=== PATIENT | female | born 1930 | race Caucasian/White ===

== ENCOUNTER → 2016-02-22 | Outpatient (CLI) | payer BC ==
[~2016-02-22] MED LIST: ACET-1311 PO; ASPEC81 PO; GLC500 PO; IBUP-1050 PO; MULT-506 PO; NAPR1TAB9 PO; PRESERVISION LUTEIN PO; Piperacill/Tazobac Consult; SIMV40TA2 PO; SIMVASTATIN PO; SYNUNK PO; Vancomycin Consult Active
== END | disposition home or self-care (01) ==
LOC: C.LAB 12:58
PROVIDERS: ATTEND Internal Medicine Pulmonary Disease
DX: R15.9 Full incontinence of feces (principal); Z78.0 Asymptomatic menopausal state

== ENCOUNTER 2016-02-25 17:46 | Inpatient (IN) | payer BC, OTHER ==
[~2016-02-25] VITALS: Ht 152.4 cm; Wt 90.7 kg
[~2016-02-25 17:46] MED LIST changes: -NAPR1TAB9 PO; -Piperacill/Tazobac Consult; -SIMVASTATIN PO; -Vancomycin Consult Active
[2016-02-25] MEDS ORDERED: SODIUM CHLORIDE 0.9% 1000ML 500 ML IV STA (18:10)
[2016-02-25] MEDS ORDERED: SODIUM CHLORIDE 0.9% 1000ML 1,000 ML IV STA ×2 (18:10→19:42)
[2016-02-25] MEDS ORDERED: PIPERACILLIN/TAZOBACTAM 4.5 GM/100ML D5W IV STA (18:10)
--- NOTE | 2016-02-25 18:24 | EMERGENCY ROOM VISIT NOTE ---
History Report prepared by Roxanna: Sharon Caal Under the Supervision of: Dr. Matthew Santos M.D. First contact with patient: 18:05 Stated Complaint: WEAKNESS History of Present Illness The patient is a 85 year old female who presents to the Emergency Room with complaints of worsening weakness for the past few weeks. She states that she started feeling weak before [place]. The patient was feeling very weak today and was unable to get up off of the toilet. She sat on the toilet for 20 minutes before pressing her life alert button. She states that she was incontinent of stool and urine. She denies fever, dysuria, and recent falls. The patient has a large wound on her buttocks that she did not know was present. She denies any pain from the wound. She states that she has been experiencing a cough and some shortness of breath. She has not been eating and drinking as much as usual. The patient denies any history of ulcers or wounds. She takes a daily baby aspirin. Source of History: patient, nursing staff Onset: a few weeks ago Position: other (global) Quality: other (weakness) Timing: worsening Associated Symptoms: + SOB, + cough, + urinary symptoms (incontinence), No fevers Review of Systems See HPI for pertinent positives & negatives. A total of 10 systems reviewed and were otherwise negative. Past Medical & Surgical Medical Problems: (1) Decubitus skin ulcer (2) Esophageal reflux (3) Hypothyroidism, unspecified (4) Unspecified cataract Family History Non-pertinent due to advanced age. Social History Marital Status: Housing Status: lives alone Occupation Status: unemployed Current/Historical Medications Scheduled Aspirin Enteric Coated (Ecotrin Or Generic *), 81 MG PO DAILY Levothyroxine (Synthroid Unknown Dose), PO QAM Metformin Hcl (Glucophage *), 500 MG PO QPM Multivitamin (Multivitamin), 1 TAB PO DAILY Naproxen (Aleve), 220 MG PO DIRECTED [Preservision Lutein], 2 TAB PO DAILY [Simvastatin], 1 TAB PO QPM Allergies Coded Allergies: Sulfa Drugs (Verified Allergy, Mild, RASH, 02/25/16) Physical Exam Vital Signs Date Time Temp Pulse Resp B/P Pulse Ox O2 Delivery O2 Flow Rate FiO2 02/25/16 21:52 36.7 87 18 152/91 98 Room Air 02/25/16 21:04 85 18 129/85 98 Room Air 02/25/16 19:59 86 18 143/73 96 Room Air 02/25/16 18:46 99 Room Air 02/25/16 18:29 89 02/25/16 18:25 36.6 99 18 134/88 94 Room Air Physical Exam GENERAL: Patient is in no acute distress. HEENT: No acute trauma, normocephalic atraumatic, mucous membranes dry, no nasal congestion, no scleral icterus. NECK: No stridor, no adenopathy, no meningismus, trachea is midline. LUNGS: Clear to auscultation bilaterally, no wheeze, no rhonchi, breath sounds equal. HEART: Irregular rhythm without any murmurs, regular rate. ABDOMEN: Soft, nontender, bowel sounds positive, no hernias, no peritonitis. BACK: There is a 15-20cm deep malodorous ulcer to the midsacrum, tissue present, there is some surrounding erythema. EXTREMITIES: Mild bilateral pedal edema, no cellulitis. No cyanosis, full range of motion of all the joints without pain or difficulty, no signs for acute trauma. There is a 10cm left lateral thigh hematoma without cellulitis. NEUROLOGIC: Oriented x 3, no acute motor or sensory deficits, no focal weakness. SKIN: No rash, no jaundice, no diaphoresis. Medical Decision & Procedures ER Provider Diagnostic Interpretation: Radiology results as stated below per my review and radiologist interpretation: CHEST ONE VIEW PORTABLE CLINICAL HISTORY: Altered mental status. Weakness. COMPARISON STUDY: Chest CT January 26, 2016. FINDINGS: The patient is rotated. There is no evidence of pulmonary edema. A 1.8 cm right upper lobe nodule is again noted. Allowing for patient rotation, the cardiomediastinal silhouette is stable. No lobar consolidation is present. IMPRESSION: 1. Rotated study. No acute cardiopulmonary findings identified. 2. Redemonstration of the 1.8 cm right upper lobe nodule which is better depicted on recent chest CT. Electronically signed by: Adan Garrett M.D. 02/25/2016 6:40 PM Dictated Date/Time: 02/25/2016 6:39 PM Laboratory Results 02/25/16 18:28 Red Blood Count 4.31, Mean Corpuscular Volume 79.4, Mean Corpuscular Hemoglobin 27.6, Mean Corpuscular Hemoglobin Concent 34.8, Mean Platelet Volume 9.4 02/25/16 18:28 Test 02/25/16 18:28 02/25/16 19:50 White Blood Count 25.99 K/uL (4.8-10.8) Red Blood Count 4.31 M/uL (4.2-5.4) Hemoglobin 11.9 g/dL (12.0-16.0) Hematocrit 34.2 % (37-47) Mean Corpuscular Volume 79.4 fL (80-100) Mean Corpuscular Hemoglobin 27.6 pg (25-34) Mean Corpuscular Hemoglobin Concent 34.8 g/dl (32-36) Platelet Count 387 K/uL (130-400) Mean Platelet Volume 9.4 fL (7.4-10.4) RDW Standard Deviation 42.0 fL (36.4-46.3) RDW Coefficient of Variation 14.6 % (11.5-14.5) Neutrophils % (Manual) 87.8 % Lymphocytes % (Manual) 10.4 % Monocytes % (Manual) 0.9 % Eosinophils % (Manual) 0.9 % Neutrophils # (Manual) 22.82 K/uL (1.4-6.5) Total Absolute Neutrophils 22.82 K/uL (1.4-6.5) Lymphocytes # (Manual) 2.70 K/uL (1.2-3.4) Total Absolute Lymphocytes 2.70 K/uL (1.2-3.4) Monocytes # (Manual) 0.23 K/uL (0.11-0.59) Eosinophils # (Manual) 0.23 K/uL (0-0.5) Prothrombin Time 14.7 SECONDS (9.0-12.0) Prothromb Time International Ratio 1.4 (0.9-1.1) Activated Partial Thromboplast Time 26.1 SECONDS (21.0-31.0) Partial Thromboplastin Ratio 1.0 Anion Gap 14.0 mmol/L (3-11) Est Creatinine Clear Calc Drug Dose 26.5 ml/min Estimated GFR () 33.7 Estimated GFR (Non- 29.1 BUN/Creatinine Ratio 31.3 (10-20) Lactic Acid Level 3.2 mmol/L (0.4-2.0) Calcium Level 7.9 mg/dl (8.5-10.1) Total Bilirubin 0.5 mg/dl (0.2-1) Aspartate Amino Transf (AST/SGOT) 54 U/L (15-37) Alanine Aminotransferase (ALT/SGPT) 36 U/L (12-78) Alkaline Phosphatase 143 U/L (45-117) Total Creatine Kinase 295 U/L (26-192) Troponin I < 0.015 ng/ml (0-0.045) Total Protein 6.4 gm/dl (6.4-8.2) Albumin 1.7 gm/dl (3.4-5.0) Globulin 4.7 gm/dl (2.5-4.0) Albumin/Globulin Ratio 0.4 (0.9-2) Thyroid Stimulating Hormone (TSH) 2.500 uIu/ml (0.300-4.500) Free Thyroxine 1.63 ng/dl (0.80-1.60) Urine Color DK YELLOW Urine Appearance TURBID (CLEAR) Urine pH 5.0 (4.5-7.5) Urine Specific [place] 1.016 (1.000-1.030) Urine Protein NEG (NEG) Urine Glucose (UA) NEG (NEG) Urine Ketones NEG (NEG) Urine Occult Blood 2+ (NEG) Urine Nitrite NEG (NEG) Urine Bilirubin NEG (NEG) Urine Urobilinogen NEG (NEG) Urine Leukocyte Esterase NEG (NEG) Urine WBC (Auto) 5-10 /hpf (0-5) Urine RBC (Auto) 5-10 /hpf (0-4) Urine Hyaline Casts (Auto) 1-5 /lpf (0-5) Urine Epithelial Cells (Auto) >30 /lpf (0-5) Urine Bacteria (Auto) NEG (NEG) Urine Renal Epithelial Cells 0-5 /lpf (0-5) Urine Crystals AMORPHOUS SEDIMENT (NONE Urine Pathogenic Casts /lpf (0) Urine Yeast (Auto) (NONE PRSENT) Laboratory results reviewed by me. Medications Administered Medications (Trade) Dose Ordered Sig/Erin Route Start Time Stop Time Status Last Admin Dose Admin Sodium Chloride 500 ml @ 999 mls/hr Q31M STAT IV 02/25/16 18:10 02/25/16 18:40 DC 02/25/16 18:42 999 MLS/HR Sodium Chloride (Nss 1000ml) 1,000 ml @ 200 mls/hr Q5H STAT IV 02/25/16 18:10 02/25/16 23:09 02/25/16 18:43 200 MLS/HR Piperacillin Sod/ Tazobactam Sod 4.5 gm 4.5 gm NOW STAT IV 02/25/16 18:10 02/25/16 18:14 DC 02/25/16 18:52 4.5 GM Sodium Chloride (Nss 1000ml) 1,000 ml @ 999 mls/hr Q1H1M STAT IV 02/25/16 19:42 02/25/16 20:42 DC 02/25/16 19:42 999 MLS/HR Vancomycin HCl (Vancomycin 1gm/ 270ml Nss) 1 gm NOW STAT IV 02/25/16 20:19 02/25/16 20:20 DC 02/25/16 20:58 1 GM Ondansetron HCl (Zofran Inj) 4 mg STK-MED ONCE .ROUTE 02/25/16 21:49 02/25/16 21:50 DC 02/25/16 21:52 4 MG ECG Indication: weakness Rate (beats per minute): 88 Rhythm: normal sinus Findings: no acute ischemic change, no ectopy, other (poor R-wave progression) ED Course 1804: The patient was evaluated in room C10. A complete history and physical exam was performed. 0: Zosyn 4.5 gm IV, NSS 1000 ml @ 200 mls/hr IV, NSS 500 ml @ 999 mls/hr IV 1941: NSS 1000 ml @ 999 mls/hr IV 2010: I reassessed the patient at this time. She is feeling better and resting comfortably. I discussed the results and treatment plan with the patient. I answered all pertaining questions that she had. She expressed understanding and verbalized agreement. 2017: I spoke with Dr. Jimenez. We discussed the patients results and treatment plan. The patient will be evaluated by the [facility] for further management. 2019: Vancomycin HCl 1 gm IV Medical Decision Differential diagnoses includes cellulitis, sepsis, dehydration, UTI, pneumonia , electrolyte imbalance, anemia, cardiac ischemia, thyroid disorder. There is a significant leukocytosis at 25,000, this is consistent with infection. No concerning anemia. Renal panel testing shows hyponatremia and dehydration. There was no hepatitis. Lactic acid level was elevated consistent with dehydration and/or sepsis. Blood cultures are pending. Urinalysis does not show infection. Chest x-ray shows no pneumonia or CHF. EKG shows a sinus rhythm, there is no ischemia, cardiac enzyme testing times one is not suggestive of acute cardiac injury. The patient's thyroid testing is consistent with someone who takes thyroid medication. The patient was aggressively managed. She had a very large sacral ulcer with a surrounding cellulitis, I suspect this is the source of her infection. A culture of the wound was sent and is pending. The patient received IV saline, she was given IV Zosyn and IV vancomycin. The patient is not hypotensive or tachycardic. She is not hypoxic. She does not appear toxic but her laboratory workup is concerning for infection. I do think admission/observation is warranted. I spoke to the patient and with the case assistant. The on-call hospitalist was consulted. Consults Time Called: 1929 Consulting Physician: Dr. Jimenez Returned Call: [address] Jimenez. We discussed the patients results and treatment plan. The patient will be evaluated by the [facility] for further management. Impression Primary Impression: Dehydration Additional Impressions: Weakness, Cellulitis, Sacral ulcer Scribe Attestation The scribe's documentation has been prepared under my direction and personally reviewed by me in its entirety. I confirm that the note above accurately reflects all work, treatment, procedures, and medical decision making performed by me. Departure Information Dispostion Being Evaluated By Hospitalist Referrals (PCP)
--- NOTE | 2016-02-25 18:42 | DIAGNOSTIC IMAGING REPORT ---
CHEST ONE VIEW PORTABLE CLINICAL HISTORY: Altered mental status. Weakness. COMPARISON STUDY: Chest CT January 26, 2016. FINDINGS: The patient is rotated. There is no evidence of pulmonary edema. A 1.8 cm right upper lobe nodule is again noted. Allowing for patient rotation, the cardiomediastinal silhouette is stable. No lobar consolidation is present. IMPRESSION: 1. Rotated study. No acute cardiopulmonary findings identified. 2. Redemonstration of the 1.8 cm right upper lobe nodule which is better depicted on recent chest CT. Electronically signed by: Adan Garrett M.D. 02/25/2016 6:40 PM Dictated Date/Time: 02/25/2016 6:39 PM
[2016-02-25 18:43] LABS: HEMATOCRIT 34.2 % (37-47); MEAN CELL VOLUME 79.4 fL (80-100); MEAN CORPUSCULAR HEMOGLOBIN 27.6 pg (25-34); MEAN CORPUSCULAR HGB CONC 34.8 g/dl (32-36); MEAN PLATELET VOLUME 9.4 fL (7.4-10.4); PLATELET COUNT 387 K/uL (130-400); RED BLOOD COUNT 4.31 M/uL (4.2-5.4); WHITE BLOOD COUNT 25.99 K/uL (4.8-10.8)
[2016-02-25] MEDS ORDERED: NAPR1TAB9 PO (18:49)
[2016-02-25] MEDS ORDERED: SIMVASTATIN PO (18:50)
[2016-02-25 18:51] LABS: INR 1.4 (0.9-1.1); PROTHROMBIN TIME (PATIENT) 14.7 SECONDS (9.0-12.0)
[2016-02-25 19:11] LABS: ALT/SGPT 36 U/L (12-78); AST/SGOT 54 U/L (15-37); BLOOD UREA NITROGEN 50 mg/dl (7-18); BUN/CREATININE RATIO 31.3 (10-20); CALCIUM 7.9 mg/dl (8.5-10.1); CARBON DIOXIDE 22 mmol/L (21-32); CHLORIDE 92 mmol/L (98-107); GLUCOSE 172 mg/dl (70-99); POTASSIUM 4.1 mmol/L (3.5-5.1); SODIUM 128 mmol/L (136-145)
[2016-02-25 19:13] LABS: COMPLETE YES; EOSINOPHIL % 0.9 %; LYMPHOCYTE % 10.4 %; NEUTROPHILS % 87.8 %
[2016-02-25 19:21] LABS: ALB/GLOB RATIO 0.4 (0.9-2); ALKALINE PHOSPHATASE 143 U/L (45-117)
[2016-02-25] MEDS ORDERED: VANCOMYCIN 1GM/270ML NSS IV STA (20:19)
[2016-02-25 20:34] LABS: URINE APPEARANCE TURBID (CLEAR); URINE BILIRUBIN NEG (NEG); URINE COLOR DK YELLOW; URINE EPITHELIAL CELL AUTO >30 /lpf (0-5); URINE NITRITE NEG (NEG); URINE SPECIFIC GRAVITY 1.016 (1.000-1.030); UROBILINOGEN NEG (NEG); ZZURINE CULT IF INDIC CATH YES
[2016-02-25 20:40] LABS: MANUAL MICROSCOPIC REQUIRED? NO; REVIEW REQ? YES
[2016-02-25] MEDS ORDERED: ONDANSETRON INJ 2 MG/ML 2 ML VIAL ONE (21:49)
[2016-02-25] MEDS ORDERED: TRAMADOL HCL 50 MG TAB PO PRN (22:00)
[2016-02-25] MEDS ORDERED: POLYETHYLENE (MIRALAX) 17 GM PACK PO PRN (22:00)
[2016-02-25] MEDS ORDERED: ACETAMINOPHEN 325 MG TAB PO PRN (22:00)
[2016-02-25] MEDS ORDERED: MAGNESIUM HYDROXIDE SUSP 30 ML UDC PO PRN (22:00)
[2016-02-25] MEDS ORDERED: ONDANSETRON INJ 2 MG/ML 2 ML VIAL IV PRN (22:00)
[2016-02-25] MEDS ORDERED: ALUMINUM/MAGNESIUM/SIMETH (MAALOX MAX) 30 ML UDC PO PRN (22:00)
[2016-02-25] MEDS ORDERED: ZOLPIDEM TARTRATE 5 MG TAB PO PRN (22:00)
--- NOTE | 2016-02-25 22:26 | History and Physical ---
History & Physical Date & Time of Service: Feb 25, 2016 at 22:09 Chief Complaint: Weakness Primary Care Physician: Samuel Goins M.D. History of Present Illness Source: patient 85 y/o F w/Hx morbid obesity, DM 2, HPL, hypothyroid - presented to the hospital for complaints of N/V/D and weakness - was having difficulty ambulating independently. On evaluation in the ER it was noted that she had a large partially necrotic stage 4 decubitus ulcer. She also has 2 additonal blister-like lesions on her lower back and L thigh. She denied any related pain and did not know that the ulcer was present. She denies fevers or rigors, denies CP, SOB or dysuria. Past Medical/Surgical History Medical Problems: (1) Esophageal reflux Status: Chronic (2) Hypothyroidism, unspecified Status: Chronic (3) Unspecified cataract Status: Chronic 4) Morbid obesity 5) Type 2 diabetes 6) HPL Family History Noncontributoey Social History She does not drink or smoke - she maintains a good degree of independence Smoking Status: Never Smoker Marital Status: Occupational Status: unemployed Immunizations History of Influenza Vaccine: No History of Tetanus Vaccine?: No History of Pneumococcal: Yes Pneumococcal Date: Oct 30, 2007 History of Hepatitis B Vaccine: No Multi-Drug Resistant Organisms History of MDRO: No Allergies Coded Allergies: Sulfa Drugs (Verified Allergy, Mild, RASH, 02/25/16) Home Medications Scheduled Aspirin Enteric Coated (Ecotrin Or Generic *), 81 MG PO DAILY Levothyroxine (Synthroid Unknown Dose), PO QAM Metformin Hcl (Glucophage *), 500 MG PO QPM Multivitamin (Multivitamin), 1 TAB PO DAILY Naproxen (Aleve), 220 MG PO DIRECTED [Preservision Lutein], 2 TAB PO DAILY [Simvastatin], 1 TAB PO QPM Review of Systems Constitutional: + fatigue, + weakness, No chills, No fever, No sweats Eyes: No worsening of vision ENT: No hearing loss, No nasal symptoms, No unusual epistaxis Respiratory: No cough, No sputum, No wheezing Cardiovascular: No chest pain Abdomen: + diarrhea, + nausea, + vomiting, No pain Musculoskeletal: No joint pain, No muscle pain Genitourinary - Female: No dysuria, No urinary frequency, No urinary urgency Psychiatric: No depression symptoms Endocrine: + fatigue Hematologic / Lymphatic: No abnormal bleeding/bruising Integumentary: + problem reported (denied any skin compliants despite large ulcer) Allergic / Immunologic: No environmental allergies Physical Exam Vital Signs Date Time Temp Pulse Resp B/P Pulse Ox O2 Delivery O2 Flow Rate FiO2 02/25/16 21:52 87 18 152/91 98 Room Air 02/25/16 21:04 85 18 129/85 98 Room Air 02/25/16 19:59 86 18 143/73 96 Room Air 02/25/16 18:46 99 Room Air 02/25/16 18:29 89 02/25/16 18:25 36.6 99 18 134/88 94 Room Air General Appearance: WD/WN, no apparent distress, + pertinent finding (Obese elderly F in no distress) Head: normocephalic, atraumatic Eyes: normal inspection, PERRL, EOMI ENT: normal ENT inspection, pharynx normal Neck: supple, no JVD Respiratory/Chest: chest non-tender, lungs clear, normal breath sounds, no respiratory distress Cardiovascular: regular rate, rhythm, no edema, no gallop, no JVD, no murmur Abdomen/GI: normal bowel sounds, non tender, soft Back: no CVA tenderness, + pertinent finding (Large decub ulcer ~15cm) Neurologic/Psych: 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, no motor/sensory deficits, alert, normal mood/affect, normal reflexes, oriented x 3 Skin: + pertinent finding (Large decub ulcer with necrotic areas - likely stage 4 - 2 additional blisters - lower back and L thigh) Diagnostics Laboratory Results Results Past 24 Hours Test 02/25/16 18:28 02/25/16 19:50 Range/Units White Blood Count 25.99 4.8-10.8 K/uL Red Blood Count 4.31 4.2-5.4 M/uL Hemoglobin 11.9 12.0-16.0 g/dL Hematocrit 34.2 37-47 % Mean Corpuscular Volume 79.4 80-100 fL Mean Corpuscular Hemoglobin 27.6 25-34 pg Mean Corpuscular Hemoglobin Concent 34.8 32-36 g/dl Platelet Count 387 130-400 K/uL Mean Platelet Volume 9.4 7.4-10.4 fL RDW Standard Deviation 42.0 36.4-46.3 fL RDW Coefficient of Variation 14.6 11.5-14.5 % Neutrophils % (Manual) 87.8 % Lymphocytes % (Manual) 10.4 % Monocytes % (Manual) 0.9 % Eosinophils % (Manual) 0.9 % Neutrophils # (Manual) 22.82 1.4-6.5 K/uL Total Absolute Neutrophils 22.82 1.4-6.5 K/uL Lymphocytes # (Manual) 2.70 1.2-3.4 K/uL Total Absolute Lymphocytes 2.70 1.2-3.4 K/uL Monocytes # (Manual) 0.23 0.11-0.59 K/uL Eosinophils # (Manual) 0.23 0-0.5 K/uL Prothrombin Time 14.7 9.0-12.0 SECONDS Prothromb Time International Ratio 1.4 0.9-1.1 Activated Partial Thromboplast Time 26.1 21.0-31.0 SECONDS Partial Thromboplastin Ratio 1.0 Sodium Level 128 136-145 mmol/L Potassium Level 4.1 3.5-5.1 mmol/L Chloride Level 92 98-107 mmol/L Carbon Dioxide Level 22 21-32 mmol/L Anion Gap 14.0 3-11 mmol/L Blood Urea Nitrogen 50 7-18 mg/dl Creatinine 1.60 0.60-1.20 mg/dl Est Creatinine Clear Calc Drug Dose 26.5 ml/min Estimated GFR () 33.7 Estimated GFR (Non- 29.1 BUN/Creatinine Ratio 31.3 10-20 Random Glucose 172 70-99 mg/dl Lactic Acid Level 3.2 0.4-2.0 mmol/L Calcium Level 7.9 8.5-10.1 mg/dl Total Bilirubin 0.5 0.2-1 mg/dl Aspartate Amino Transf (AST/SGOT) 54 15-37 U/L Alanine Aminotransferase (ALT/SGPT) 36 12-78 U/L Alkaline Phosphatase 143 45-117 U/L Total Creatine Kinase 295 26-192 U/L Troponin I < 0.015 0-0.045 ng/ml Total Protein 6.4 6.4-8.2 gm/dl Albumin 1.7 3.4-5.0 gm/dl Globulin 4.7 2.5-4.0 gm/dl Albumin/Globulin Ratio 0.4 0.9-2 Thyroid Stimulating Hormone (TSH) 2.500 0.300-4.500 uIu/ml Free Thyroxine 1.63 0.80-1.60 ng/dl Urine Color DK YELLOW Urine Appearance TURBID CLEAR Urine pH 5.0 4.5-7.5 Urine Specific [place] 1.016 1.000-1.030 Urine Protein NEG NEG Urine Glucose (UA) NEG NEG Urine Ketones NEG NEG Urine Occult Blood 2+ NEG Urine Nitrite NEG NEG Urine Bilirubin NEG NEG Urine Urobilinogen NEG NEG Urine Leukocyte Esterase NEG NEG Urine WBC (Auto) 5-10 0-5 /hpf Urine RBC (Auto) 5-10 0-4 /hpf Urine Hyaline Casts (Auto) 1-5 0-5 /lpf Urine Epithelial Cells (Auto) >30 0-5 /lpf Urine Bacteria (Auto) NEG NEG Urine Renal Epithelial Cells 0-5 0-5 /lpf Urine Crystals AMORPHOUS SEDIMENT NONE PRSENT Urine Pathogenic Casts 0 /lpf Urine Yeast (Auto) NONE PRSENT Microbiology Results 02/25/16 Blood Culture, Received Pending 02/25/16 Blood Culture, Received Pending 02/25/16 Urine Culture, Received Pending 02/25/16 Gram Stain, Received Pending 02/25/16 Wound Culture, Received Pending Impression Assessment and Plan 85 y/o F w/Hx morbid obesity, DM 2, HPL, hypothyroid - presented to the hospital for complaints of N/V/D and weakness - was having difficulty ambulating independently. On evaluation in the ER it was noted that she had a large partially necrotic stage 4 decubitus ulcer. She denied any related pain and did not know that the ulcer was present. 1) Large ulcer - elevated lactic acid and leukocytosis - she has 2 additional blisters on her L thigh and lower back, she also has a GI illness although the likely source of her systemic infection would be the ulcer. Due to the extent of the wound and presence of necrotic tissue we have started Vanc and Zosyn pending wound culture results. Surgery has been consulted as this would likely require debridement. Wound care will also be consulted as they may be able to manage the smaller lesions. She will be hydrated and we will repeat a lactic acid AM. NPO after midnight. 2) N/V/D - stool and C diff cultures ordered - antiemetics and fluids as needed 3) DM - Metformin held - placed on a sliding scale. 4) Hypothyroid - cont synthroid 5) HPL - cont Zocor Full code - SCDs pending surgery eval Total time for this admit including review of records, med rec, review of labs and discussion w/ER attending and pt - 37 min Level of Care Med/Surg Resuscitation Status FULL RESUSCITATION VTE Prophylaxis VTE Risk Assessment Done? Y/N: Yes Risk Level: Moderate Given or contraindicated: SCD's
[2016-02-26] VITALS (8 sets, daily range): BP systolic 117–154; BP diastolic 65–81; PULSE 77–84; TEMP 36.3–36.7; O2SAT 96–98; Ht 152.4 cm; Wt 90.7 kg
[2016-02-26] MEDS: SODIUM CHLORIDE 0.9% 1000ML 1,000 ML IV SCH ×2 (03:44→08:54)
[2016-02-26] MEDS ORDERED: VANCOMYCIN CONSULT ACTIVE PRN (03:45)
[2016-02-26] MEDS ORDERED: PIPERACILL/TAZOBAC CONSULT ACTIVE PRN (03:45)
[2016-02-26] MEDS ORDERED: VANCOMYCIN INJ 1,350 MG in SODIUM CHLORIDE 0.9% 250ML 250 ML IV ONE (04:00)
[2016-02-26] MEDS: PIPERACILL/TAZOBAC IV 3.375 GM in DEXTROSE 5% 100ML 100 ML IV SCH ×2 (04:03→11:44)
[2016-02-26] MEDS ORDERED: DEXTROSE 50% 50 ML SYR IV PRN (05:15)
[2016-02-26] MEDS ORDERED: GLUCOSE 40% GEL 15 GM TUBE PO PRN (05:15)
[2016-02-26] MEDS ORDERED: GLUCAGON FOR INJ 1 MG VIAL SQ PRN (05:15)
[2016-02-26] MEDS ORDERED: GLUCOSE 10 TABS/TUBE PO PRN (05:15)
[2016-02-26] MEDS ORDERED: INSULIN ASPART 100 UNITS/ML 3 ML PEN SC SCH ×2 (06:00→12:00)
[2016-02-26 07:42] LABS: CREATININE 1.2 mg/dl (0.60-1.20)
--- NOTE | 2016-02-26 08:10 | Medical Consult ---
Consultation Date of Consultation: Feb 26, 2016. Attending Physician: Nabor Jimenez MD History of Present Illness 85 y/o obese woman lives alone...presents with generalized weakness.... found to have large /necrotic decub ulcer that she did not know she had also c/o right thigh pain Past Medical/Surgical History Medical Problems: (1) Cellulitis Status: Acute (2) Dehydration Status: Acute (3) Sacral ulcer Status: Acute (4) Weakness Status: Acute Social History Smoking Status: Never Smoker Marital Status: Housing Status: lives alone Occupation Status: unemployed Allergies Coded Allergies: Sulfa Drugs (Verified Allergy, Mild, RASH, 02/25/16) Current Inpatient Medications Current Inpatient Medications Medications (Trade) Dose Ordered Sig/Erin Route Start Time Stop Time Status Last Admin Dose Admin Piperacillin Sod/ Tazobactam Sod/ Dextrose (Zosyn Iv/D5 100ml) 115 ml @ 28.75 mls/ hr Q8H IV 02/26/16 04:00 03/07/16 03:59 02/26/16 04:03 28.75 MLS/HR Aspirin (Ecotrin Tab) 81 mg DAILY PO 02/26/16 09:00 03/27/16 08:59 Multivitamins (Multivitamin Tab) 1 tab DAILY PO 02/26/16 09:00 03/27/16 08:59 Miscellaneous Information (Order Awaiting Action) 1 ea QS N/A 02/26/16 08:00 03/27/16 07:59 Multivitamins/ Minerals (Multivitamin W/ Minerals Tab) 1 tab DAILY PO 02/26/16 09:00 03/27/16 08:59 Simvastatin (Zocor Tab) 20 mg PM PO 02/26/16 21:00 03/27/16 20:59 Acetaminophen (Tylenol Tab) 650 mg Q4H PRN PO 02/25/16 22:00 03/26/16 21:59 Al Hydrox/Mg Hydrox/Simethicone (Maalox Max Susp) 15 ml Q4H PRN PO 02/25/16 22:00 03/26/16 21:59 Magnesium Hydroxide (Milk Of Magnesia Susp) 30 ml Q6H PRN PO 02/25/16 22:00 03/26/16 21:59 Polyethylene (Miralax Powder Packet) 17 gm DAILY PRN PO 02/25/16 22:00 03/26/16 21:59 Zolpidem Tartrate (Ambien Tab) 5 mg HSZ PRN PO 02/25/16 22:00 03/26/16 21:59 Ondansetron HCl (Zofran Inj) 4 mg Q6H PRN IV 02/25/16 22:00 03/26/16 21:59 Tramadol HCl 50 mg 50 mg Q4H PRN PO 02/25/16 22:00 03/26/16 21:59 Sodium Chloride (Nss 1000ml) 1,000 ml @ 100 mls/hr Q10H IV 02/25/16 22:15 02/27/16 04:14 02/26/16 03:44 100 MLS/HR Insulin Aspart (novoLOG ASPART) SLIDING SCALE G... Q6 SC 02/26/16 06:00 03/27/16 05:59 Vancomycin HCl (Consult) 1 ea UD PRN N/A 02/26/16 03:45 03/27/16 03:44 Piperacillin Sod/ Tazobactam Sod (Consult) 1 ea UD PRN N/A 02/26/16 03:45 03/27/16 03:44 Glucose (Glucose 40% Gel) 15-30 GRAMS 15 GRAMS... UD PRN PO 02/26/16 05:15 03/27/16 05:14 Glucose (Glucose Chew Tab) 4-8 Tablets 4 Tabl... UD PRN PO 02/26/16 05:15 03/27/16 05:14 Dextrose (Dextrose 50% 50ML Syringe) 25-50ML OF 50% DW IV FOR... UD PRN IV 02/26/16 05:15 03/27/16 05:14 Glucagon (Glucagon Inj) 1 mg UD PRN SQ 02/26/16 05:15 03/27/16 05:14 Review of Systems Constitutional: + fatigue, + weakness Musculoskeletal: + muscle pain Physical Exam Date Time Temp Pulse Resp B/P Pulse Ox O2 Delivery O2 Flow Rate FiO2 02/26/16 07:47 36.7 78 16 121/74 96 Room Air 02/26/16 00:28 Room Air 02/26/16 00:00 36.5 81 18 117/65 96 Room Air 02/25/16 21:52 36.7 87 18 152/91 98 Room Air 02/25/16 21:04 85 18 129/85 98 Room Air 02/25/16 19:59 86 18 143/73 96 Room Air 02/25/16 18:46 99 Room Air 02/25/16 18:29 89 02/25/16 18:25 36.6 99 18 134/88 94 Room Air General Appearance: no apparent distress Head: normocephalic Eyes: normal inspection, EOMI Neck: supple, no adenopathy Cardiovascular: regular rate, rhythm Abdomen/GI: non tender, soft Extremities/Musculoskelatal: + pertinent finding (large area of necrotic tissue very near rectum. foul smelling....also has red/firm area on right thigh. ? abcess) Laboratory Results Last 24 Hours Test 02/25/16 18:28 02/25/16 19:50 02/26/16 05:53 02/26/16 07:05 White Blood Count 25.99 K/uL Red Blood Count 4.31 M/uL Hemoglobin 11.9 g/dL Hematocrit 34.2 % Mean Corpuscular Volume 79.4 fL Mean Corpuscular Hemoglobin 27.6 pg Mean Corpuscular Hemoglobin Concent 34.8 g/dl Platelet Count 387 K/uL Mean Platelet Volume 9.4 fL RDW Standard Deviation 42.0 fL RDW Coefficient of Variation 14.6 % Neutrophils % (Manual) 87.8 % Lymphocytes % (Manual) 10.4 % Monocytes % (Manual) 0.9 % Eosinophils % (Manual) 0.9 % Neutrophils # (Manual) 22.82 K/uL Total Absolute Neutrophils 22.82 K/uL Lymphocytes # (Manual) 2.70 K/uL Total Absolute Lymphocytes 2.70 K/uL Monocytes # (Manual) 0.23 K/uL Eosinophils # (Manual) 0.23 K/uL Prothrombin Time 14.7 SECONDS Prothromb Time International Ratio 1.4 Activated Partial Thromboplast Time 26.1 SECONDS Partial Thromboplastin Ratio 1.0 Sodium Level 128 mmol/L Potassium Level 4.1 mmol/L Chloride Level 92 mmol/L Carbon Dioxide Level 22 mmol/L Anion Gap 14.0 mmol/L Blood Urea Nitrogen 50 mg/dl Creatinine 1.60 mg/dl 1.20 mg/dl Est Creatinine Clear Calc Drug Dose 26.5 ml/min 34.4 ml/min Estimated GFR () 33.7 47.7 Estimated GFR (Non- 29.1 41.2 BUN/Creatinine Ratio 31.3 Random Glucose 172 mg/dl Lactic Acid Level 3.2 mmol/L Calcium Level 7.9 mg/dl Total Bilirubin 0.5 mg/dl Aspartate Amino Transf (AST/SGOT) 54 U/L Alanine Aminotransferase (ALT/SGPT) 36 U/L Alkaline Phosphatase 143 U/L Total Creatine Kinase 295 U/L Troponin I < 0.015 ng/ml Total Protein 6.4 gm/dl Albumin 1.7 gm/dl Globulin 4.7 gm/dl Albumin/Globulin Ratio 0.4 Thyroid Stimulating Hormone (TSH) 2.500 uIu/ml Free Thyroxine 1.63 ng/dl Urine Color DK YELLOW Urine Appearance TURBID Urine pH 5.0 Urine Specific [place] 1.016 Urine Protein NEG Urine Glucose (UA) NEG Urine Ketones NEG Urine Occult Blood 2+ Urine Nitrite NEG Urine Bilirubin NEG Urine Urobilinogen NEG Urine Leukocyte Esterase NEG Urine WBC (Auto) 5-10 /hpf Urine RBC (Auto) 5-10 /hpf Urine Hyaline Casts (Auto) 1-5 /lpf Urine Epithelial Cells (Auto) >30 /lpf Urine Bacteria (Auto) NEG Urine Renal Epithelial Cells 0-5 /lpf Urine Crystals AMORPHOUS SEDIMENT Urine Pathogenic Casts /lpf Urine Yeast (Auto) Bedside Glucose 137 mg/dl Assessment & Plan 1. decub ulcer will need debrided in OR...will plan for tomorrow will likely need some adjunct faculty for medical terminology care to get this to heal may need a diverting colostomy at some point. difficult to eval the extent of the issue at bedside...will be able to eval better in OR. 2. will obtain US of thigh redness...if abcess, will drain at same time in OR
[2016-02-26] MEDS ORDERED: MULTIVITAMIN TAB PO SCH (09:00)
[2016-02-26] MEDS ORDERED: CEROVITE ADV FORMULA TAB PO SCH (09:00)
[2016-02-26] MEDS ORDERED: ASPIRIN 81 MG ECTAB PO SCH (09:00)
[2016-02-26] MEDS ORDERED: MoRPHine SULFATE 2 MG/ML CARP IV STA (09:35)
[2016-02-26] MEDS ORDERED: MoRPHine SULFATE 2 MG/ML CARP IV PRN (09:45)
[2016-02-26] MEDS ORDERED: FAMOTIDINE 20 MG TAB PO ONE (09:45)
[2016-02-26] MEDS ORDERED: FAMOTIDINE 20MG/102 ML D5W IV STA (10:13)
--- NOTE | 2016-02-26 10:15 | DIAGNOSTIC IMAGING REPORT ---
CHEST ONE VIEW PORTABLE CLINICAL HISTORY: Chest heaviness. COMPARISON STUDY: Chest radiograph February 25, 2016. FINDINGS: The patient is rotated. No pneumothorax or pleural effusion is present. There is no lobar consolidation. Cardiomediastinal silhouette is stable when allowing for patient rotation. A 2.1 cm nodular density within the right upper lung is again noted. IMPRESSION: 1. Rotated study. No significant change in appearance of the chest. 2. Redemonstration of an indeterminate 2.1 cm right upper lobe nodule. Electronically signed by: Adan Garrett M.D. 02/26/2016 10:13 AM Dictated Date/Time: 02/26/2016 10:10 AM
--- NOTE | 2016-02-26 10:25 | Progress Note ---
Subjective Date of Service: Feb 26, 2016. Subjective Pt evaluation today including: conversation w/ patient, physical exam, chart review, lab review, review of studies, conversation w/ loss control consultant, review of inpatient medication list Was paged to see patient stat in the bedside because of the chest tight, Report feeling nauseated, report has been nausea vomiting for 5 days, not able to eating/ drinking No abdominal pain no diarrhea or constipation, passing gas Chest tight was getting better when I seeing her, uncomfortable was 1 out of 10 has urinary incontinence which is not new Problem List Medical Problems: (1) Cellulitis Status: Acute (2) Dehydration Status: Acute (3) Sacral ulcer Status: Acute (4) Weakness Status: Acute Review of Systems Constitutional: + fatigue, + weakness, No chills, No fever, No problem reported , No sweats, No weight loss Eyes: No diplopia, No discharge, No eye pain, No redness, No worsening of vision ENT: No dental problems, No hearing loss, No nasal symptoms, No sore throat, No tinnitus, No trouble swallowing, No unusual epistaxis Respiratory: No cough, No dyspnea at rest, No dyspnea on exertion, No hemoptysis, No shortness of breath, No sputum, No wheezing Cardiac: No PND, No chest pain, No claudication, No edema, No orthopnea, No palpitations Abdomen: + nausea, No constipation, No diarrhea, No pain, No vomiting Musculoskeletal: No calf pain, No joint pain, No muscle pain, No swelling Female : No abnormal vaginal bleeding, No dysuria, No hematuria, No incontinence, No urinary frequency, No vaginal discharge Neurologic: No balance problems, No memory loss, No numbness/tingling, No paralysis, No vertigo, No weakness Psychiatric: No anhedonism, No anxiety, No depression symptoms, No insomnia, No substance abuse Heme: No abnormal bleeding/bruising, No clotting problems, No night sweats, No swollen lymph nodes Endo: No excessive thirst, No excessive urination, No fatigue Skin: + problem reported (left side is open wound and abscess), No bleeding, No color change, No itch, No new/changing skin lesions, No rash Objective Vital Signs Date Time Temp Pulse Resp B/P Pulse Ox O2 Delivery O2 Flow Rate FiO2 02/26/16 10:04 96 Room Air 02/26/16 09:40 36.6 77 16 154/81 96 Room Air 02/26/16 09:04 96 Room Air 02/26/16 08:00 96 Room Air 02/26/16 07:47 36.7 78 16 121/74 96 Room Air 02/26/16 00:28 Room Air 02/26/16 00:00 36.5 81 18 117/65 96 Room Air 02/25/16 21:52 36.7 87 18 152/91 98 Room Air 02/25/16 21:04 85 18 129/85 98 Room Air 02/25/16 19:59 86 18 143/73 96 Room Air 02/25/16 18:46 99 Room Air 02/25/16 18:29 89 02/25/16 18:25 36.6 99 18 134/88 94 Room Air Physical Exam General Appearance: WD/WN, no apparent distress, + obese Eyes: normal inspection, PERRL, EOMI, sclerae normal, + pertinent finding ( mucosa was dry, leukocytic local heal) ENT: normal ENT inspection, hearing grossly normal, pharynx normal Neck: supple, no adenopathy, thyroid normal, no JVD, no carotid bruits, trachea midline Respiratory/Chest: chest non-tender, normal breath sounds, no respiratory distress, no accessory muscle use, + decreased breath sounds Cardiovascular: regular rate, rhythm, no edema, no gallop, no JVD, no murmur Abdomen: normal bowel sounds, non tender, soft, no organomegaly, no pulsatile mass, + pertinent finding (Eddy in place with the high concentrated urine) Extremities: normal range of motion, non-tender, normal inspection, no pedal edema, no calf tenderness, normal capillary refill, pelvis stable Neurologic/Psychiatric: information clerk cashier II-XII nml as tested, no motor/sensory deficits, alert, normal mood/affect, oriented x 3 Skin: normal color, warm/dry, no rash, + pertinent finding (large partially necrotic stage 4 decubitus ulcer, 2 additional blisters on her L thigh and lower back) Lymphatic: no adenopathy Laboratory Results Last 24 Hours Test 02/25/16 18:28 02/25/16 19:50 02/26/16 05:53 02/26/16 07:05 White Blood Count 25.99 K/uL Red Blood Count 4.31 M/uL Hemoglobin 11.9 g/dL Hematocrit 34.2 % Mean Corpuscular Volume 79.4 fL Mean Corpuscular Hemoglobin 27.6 pg Mean Corpuscular Hemoglobin Concent 34.8 g/dl Platelet Count 387 K/uL Mean Platelet Volume 9.4 fL RDW Standard Deviation 42.0 fL RDW Coefficient of Variation 14.6 % Neutrophils % (Manual) 87.8 % Lymphocytes % (Manual) 10.4 % Monocytes % (Manual) 0.9 % Eosinophils % (Manual) 0.9 % Neutrophils # (Manual) 22.82 K/uL Total Absolute Neutrophils 22.82 K/uL Lymphocytes # (Manual) 2.70 K/uL Total Absolute Lymphocytes 2.70 K/uL Monocytes # (Manual) 0.23 K/uL Eosinophils # (Manual) 0.23 K/uL Prothrombin Time 14.7 SECONDS Prothromb Time International Ratio 1.4 Activated Partial Thromboplast Time 26.1 SECONDS Partial Thromboplastin Ratio 1.0 Sodium Level 128 mmol/L Potassium Level 4.1 mmol/L Chloride Level 92 mmol/L Carbon Dioxide Level 22 mmol/L Anion Gap 14.0 mmol/L Blood Urea Nitrogen 50 mg/dl Creatinine 1.60 mg/dl 1.20 mg/dl Est Creatinine Clear Calc Drug Dose 26.5 ml/min 34.4 ml/min Estimated GFR () 33.7 47.7 Estimated GFR (Non- 29.1 41.2 BUN/Creatinine Ratio 31.3 Random Glucose 172 mg/dl Lactic Acid Level 3.2 mmol/L Calcium Level 7.9 mg/dl Total Bilirubin 0.5 mg/dl Aspartate Amino Transf (AST/SGOT) 54 U/L Alanine Aminotransferase (ALT/SGPT) 36 U/L Alkaline Phosphatase 143 U/L Total Creatine Kinase 295 U/L Troponin I < 0.015 ng/ml Total Protein 6.4 gm/dl Albumin 1.7 gm/dl Globulin 4.7 gm/dl Albumin/Globulin Ratio 0.4 Thyroid Stimulating Hormone (TSH) 2.500 uIu/ml Free Thyroxine 1.63 ng/dl Urine Color DK YELLOW Urine Appearance TURBID Urine pH 5.0 Urine Specific [place] 1.016 Urine Protein NEG Urine Glucose (UA) NEG Urine Ketones NEG Urine Occult Blood 2+ Urine Nitrite NEG Urine Bilirubin NEG Urine Urobilinogen NEG Urine Leukocyte Esterase NEG Urine WBC (Auto) 5-10 /hpf Urine RBC (Auto) 5-10 /hpf Urine Hyaline Casts (Auto) 1-5 /lpf Urine Epithelial Cells (Auto) >30 /lpf Urine Bacteria (Auto) NEG Urine Renal Epithelial Cells 0-5 /lpf Urine Crystals AMORPHOUS SEDIMENT Urine Pathogenic Casts /lpf Urine Yeast (Auto) Bedside Glucose 137 mg/dl Test 02/26/16 09:35 02/26/16 09:53 02/26/16 10:10 02/26/16 10:12 Creatine Kinase MB Ratio Assessment and Plan 85 y/o F w/Hx morbid obesity, DM 2, HPL, hypothyroid -admitted to the hospital for complaints of N/V/D and weakness on 02/25/2016 was having difficulty ambulating independently. On evaluation in the ER it was noted that she had a large partially necrotic stage 4 decubitus ulcer. She denied any related pain and did not know that the ulcer was present. Possible sepsis upon admission with mild ever leukocytosis, elevated lactic acid asso with large partially necrotic stage 4 decubitus ulcer large partially necrotic stage 4 decubitus ulcer, 2 additional blisters on her L thigh and lower back, Continue Vanc and Zosyn pending wound culture results. Surgery has been consulted as this would likely require debridement. Wound care be consulted as they may be able to manage the smaller lesions.NPO after midnight. Gastroenteritis with N/V/D - stool and C diff cultures ordered - antiemetics and fluids continue Dehydration with acute kidney failure creatinine up to 1.6 likely because of not eating drinking well and nausea /vomiting DM - Metformin held - placed on a sliding scale. 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
[2016-02-26 10:26] LABS: CKMB/CK RATIO 0.7 (0-3.0)
[2016-02-26 10:33] LABS: HEMATOCRIT 32.7 % (37-47); MEAN CELL VOLUME 78.2 fL (80-100); MEAN CORPUSCULAR HEMOGLOBIN 26.6 pg (25-34); MEAN PLATELET VOLUME 9.1 fL (7.4-10.4); PLATELET COUNT 344 K/uL (130-400); RED BLOOD COUNT 4.18 M/uL (4.2-5.4); WHITE BLOOD COUNT 21.87 K/uL (4.8-10.8)
[2016-02-26 10:53] LABS: BUN/CREATININE RATIO 40.3 (10-20); CALCIUM 7.2 mg/dl (8.5-10.1); CREATININE 1.2 mg/dl (0.60-1.20)
[2016-02-26 10:58] LABS: COMPLETE YES; ECHINOCYTES 1+; LYMPH ABS # 3.61 K/uL (1.2-3.4); LYMPHOCYTE % 16.5 %; MEAN CORPUSCULAR HGB CONC 33.9 g/dl (32-36); NEUTROPHILS % 82.6 %; TOXIC GRANULATION 1+
--- NOTE | 2016-02-26 11:03 | Pharmacy Progress Note ---
Pharmacy Antibiotic Consult Date of Service: Feb 26, 2016. Pharmacy Dosing Scope Pharmacy is consulted to initiate vancomycin and zosyn IV dosing therapy, order appropriate labs and adjust drug dose/frequency. Subjective The patient is a 85 year old female admitted on Feb 25, 2016 at 22:01. Objective Height (Feet): 5 Height (Inches): 0.00 Weight (Kilograms): 90.700 Lab Results (24hrs): Laboratory Tests Test 02/25/16 18:28 02/26/16 07:05 02/26/16 10:25 BUN/Creatinine Ratio 31.3 40.3 Blood Urea Nitrogen 50 mg/dl 48 mg/dl Creatinine 1.60 mg/dl 1.20 mg/dl 1.20 mg/dl White Blood Count 25.99 K/uL 21.87 K/uL Red Blood Count 4.31 M/uL 4.18 M/uL Hemoglobin 11.9 g/dL 11.1 g/dL Hematocrit 34.2 % 32.7 % Mean Corpuscular Volume 79.4 fL 78.2 fL Mean Corpuscular Hemoglobin 27.6 pg 26.6 pg Mean Corpuscular Hemoglobin Concent 34.8 g/dl Platelet Count 387 K/uL 344 K/uL Mean Platelet Volume 9.4 fL 9.1 fL Micro Results: Item Value Date Time Urine Culture Received 02/25/16 1950 Urine,Catheterized Pending Blood Culture Received 02/25/161827 Blood Pending Blood Culture Received 02/25/161824 Blood Pending Gram Stain - Final Resulted 02/25/161812 Drainage-Deep Sacrum Assessment & Plan Patient started on vancomycin and zosyn for necrotic stage 4 decubitus ulcer. Surgery consulted for possible debridement. BC x 2, urine culture, and wound cultures are pending. Vancomycin: * LD of vancomycin 1gm (~11 mg/kg) given * One time dose of 1350 mg (~15 mg/kg) ordered for this am * Scr appears to be improving more today, from 1.6 to 1.2 mg/dL (based upon prior admissions closer to ~0.9) * Will start maintenance dose of 1100 mg (~12 mg/kg) iv q 24 hrs to achieve an estimated trough ~15-20 mcg/ml (goal for abscess); was less aggressive with dose due to risk of increased accumulation since BMI>35 kg/m2 * Estimated kinetics: t1/2~22 hrs, ke~0.032, Scr~1.2 mg/dL, CrCl ~34 ml/min * Will obtain a trough prior to the 04 dose on 02/28 to ensure therapeutic Zosyn: * dosed 3.375 gm iv q 8 hrs - based upon elevated Scr on admission (Q8 hr recommended for CrCl >20 ml/min); will continue with current regimen for now, will consider possibly increasing to 4.5 gm dose tomorrow if Scr continues to improve (4.5 gm dose recommended for obese patients with BMI>35 kg/m2; actual BMI ~39 kg/m2) Pharmacy will continue to follow and will adjust dose/frequency as necessary. Thank you
--- NOTE | 2016-02-26 12:57 | DIAGNOSTIC IMAGING REPORT ---
CT OF THE ABDOMEN AND PELVIS WITHOUT CONTRAST CLINICAL HISTORY: Cellulitis. Decubitus skin ulcer. Nausea and vomiting. COMPARISON STUDY: PET/CT September 08, 2015. TECHNIQUE: Axial images of the abdomen and pelvis were obtained without IV contrast. Images were reviewed in the axial, sagittal, and coronal planes. FINDINGS: Visualized portions of the lower chest demonstrate a few right middle lobe nodules which are unchanged since prior chest CT of January 26, 2016. These remain indeterminate. Evaluation of the abdomen and pelvis is suboptimal given the lack of IV and oral contrast. There are gallstones within the gallbladder. Unenhanced images of spleen, adrenal glands, kidneys and pancreas are unremarkable. There is no hydronephrosis. There is no biliary or pancreatic ductal dilatation. There is apparent mild nodularity of the liver surface. Sensitivity for detection of hepatic lesions is diminished on this unenhanced exam but none are identified. There are post surgical findings within the right. There is no evidence for a bowel obstruction. Although, there is soft tissue ulceration overlying the sacrum and coccyx. There is extensive associated soft tissue gas that extends into the both ischioanal fossae, the bilateral buttocks, including the gluteal musculature, the left abductor musculature and both upper thighs, left greater than right. There is associated infiltration. There is no drainable fluid collection on this examination. The gas contacts the coccyx. There may be associated osteomyelitis. A Eddy balloon is present within the bladder which is collapsed. IMPRESSION: Sacral decubitus ulcer with extensive associated soft tissue gas that extends into the bilateral ischioanal fossae, the bilateral buttocks, including the gluteal musculature, the bilateral thighs and the left abductor musculature. The findings suggest a severe gas-forming infectious process such as necrotizing fasciitis. Possible associated osteomyelitis of the coccyx. Surgical consultation is recommended. Findings discussed with Dr. Bell at time of dictation. Electronically signed by: Adan Garrett M.D. 02/26/2016 12:55 PM Dictated Date/Time: 02/26/2016 12:40 PM
--- NOTE | 2016-02-26 13:05 | DIAGNOSTIC IMAGING REPORT ---
LEFT THIGH ULTRASOUND CLINICAL HISTORY: Cellulitis. Skin ulcer. Leg pain. COMPARISON STUDY: CT of the abdomen and pelvis performed earlier today. FINDINGS: No fluid collection is identified within the left by by sonography. The soft tissue gas shown on CT is not evident by sonography. IMPRESSION: No left thigh fluid collection to suggest abscess. The soft tissue gas shown on recent CT is not evident by sonography but suggests a gas-forming infectious process such as necrotizing fasciitis and surgical consultation is recommended. Electronically signed by: Adan Garrett M.D. 02/26/2016 1:04 PM Dictated Date/Time: 02/26/2016 1:02 PM
[2016-02-26] MEDS ORDERED: Vancomycin Consult Active (13:52)
[2016-02-26] MEDS ORDERED: Piperacill/Tazobac Consult (13:52)
--- NOTE | 2016-02-26 13:54 | Discharge Instructions ---
Discharge Instructions Admission Reason for Admission: Cellulitis, Decubitus Skin Ulcer Discharge Discharge Diagnosis / Problem: gas forming infectious process, deep extensive necrotizing faciitis Discharge Goals Goal(s): Decrease discomfort, Improve function, Increase independence, Improve disease control, Improve nutritional status, Learn about illness, Diagnostic testing, Therapeutic intervention, Prevent Disease Progression, Specific goals Activity Recommendations Activity Limitations: as noted below . Instructions / Follow-Up Instructions / Follow-Up you have gas forming infectious process, deep extensive necrotizing fasciitis [place] [facility] [place] up with [place]cp [place] [facility] [place] Diet Patient's current hospital diet: Diabetes Type 2 Diet Discharge Diet Recommended Diet: N/A Pending Studies Studies pending at discharge: no Laboratory Results Hemoglobin A1c Test 01/17/16 11:51 Range/Units Estimated Average Glucose 143 mg/dl Hemoglobin A1c 6.6 H 4.5-5.6 % Lipid Panel Test 01/17/16 11:51 Range/Units Triglycerides Level 108 0-150 mg/dl Cholesterol Level 107 0-200 mg/dl HDL Cholesterol 41 mg/dl Cholesterol/HDL Ratio 2.6 LDL Cholesterol, Calculated 44 mg/dl Medical Emergencies . Who to Call and When: Medical Emergencies: If at any time you feel your situation is an emergency, please call 911 immediately. . Non-Emergent Contact Non-Emergency issues call your: Primary Care Provider . . "Provider Documentation" section prepared by Rhett Bell. VTE Core Measure Inpt VTE Proph given/why not?: SCD's
--- NOTE | 2016-02-26 14:01 | Discharge Summary ---
Discharge Summary Admission Date: Feb 25, 2016 at 22:01 Discharge Date: Feb 26, 2016 Discharge Disposition: Acute care facility Principal Diagnosis: gas forming infectious process, deep extensive necrotizing fasciitis Problems/Secondary Diagnoses: ambulatory dysfunction Immunizations: Have You Had Influenza Vaccine: No History of Tetanus Vaccine?: No History of Pneumococcal: Yes Pneumococcal Date: Oct 30, 2007 History of Hepatitis B Vaccine: No Discharge Exam see today's note, looks better this pm Review of Systems: Constitutional: No chills, No fatigue, No fever, No problem reported, No sweats, No weakness, No weight loss Eyes: No diplopia, No discharge, No eye pain, No problem reported, No redness, No worsening of vision ENT: No dental problems, No hearing loss, No nasal symptoms, No problem reported, No sore throat, No tinnitus, No trouble swallowing, No unusual epistaxis Respiratory: No cough, No dyspnea at rest, No dyspnea on exertion, No hemoptysis, No problem reported, No shortness of breath, No sputum, No wheezing Abdomen: No GI bleeding, No constipation, No diarrhea, No nausea, No pain, No problem reported, No vomiting Musculoskeletal: + joint pain Genitourinary - Female: No dysmenorrhea, No dysuria, No hematuria, No menorrhagia, No metrorrhagia, No , No problem reported, No rash, No urinary frequency, No urinary incontinence, No urinary retention, No urinary urgency, No vaginal bleeding, No vaginal discharge, No vaginal itching, No vulvodynia Neurologic: No balance problems, No memory loss, No numbness/tingling, No paralysis, No problem reported, No vertigo, No weakness Psychiatric: No anhedonism, No anxiety, No depression symptoms, No insomnia , No problem reported, No substance abuse Endocrine: No excessive thirst, No excessive urination, No fatigue, No problem reported Hematologic / Lymphatic: No abnormal bleeding/bruising, No clotting problems , No night sweats, No problem reported, No swollen lymph nodes Integumentary: No bleeding, No color change, No itch, No new/changing skin lesions, No problem reported, No rash Physical Exam: Lymphatic: + pertinent finding (see today's note) Hospital Course 85 y/o F w/Hx morbid obesity, DM 2, HPL, hypothyroid -admitted to the hospital for complaints of N/V/D and weakness on 02/25/2016 was having difficulty ambulating independently. On evaluation in the ER it was noted that she had a large partially necrotic stage 4 decubitus ulcer. She denied any related pain and did not know that the ulcer was present. later she was found has gas forming infectious process, and possible deep extensive necrotizing fasciitis, Possible sepsis upon admission with mild ever leukocytosis, elevated lactic acid asso with large partially necrotic stage 4 decubitus ulcer large partially necrotic stage 4 decubitus ulcer, 2 additional blisters on her L thigh and lower back, Continue Vanc and Zosyn pending wound culture results. Surgery has been consulted as this would likely require debridement. Wound care be consulted as they may be able to manage the smaller lesions.NPO after midnight. radiologist called me about Ct of abd pelvix result, reported about gas forming infectious process, and possible deep extensive necrotizing fasciitis, I called to surgeon, he recs [facility] transferring I discussed with patient , she agreed to transfer, discussed risks and benefit, consent of transferring signed, called to [facility] Hyun santos pt, will go by ALS Gastroenteritis with N/V/D - stool and C diff cultures ordered - antiemetics and fluids continue Dehydration with acute kidney failure creatinine up to 1.6 likely because of not eating drinking well and nausea /vomiting DM - Metformin held - placed on a sliding scale. Check A1c at insulin sliding scale Ambulatory dysfunction possible bedridden prior to admission, order PT OT if stable and improved Hypothyroid - unknown dose, I ordered "RN call to pharmacy to get the dose of Synthroid , then call me to restart" HPL - cont Zocor plan : As above, bus monitor, IV antibiotics, IV fluid, follow-up lytes, Abdominal CT studies to evaluation the etiology of nausea vomiting, which showed gas forming infectious process, and possible deep extensive necrotizing fasciitis, I called to surgeon, he recs [facility] transferring I discussed with patient , she agreed to transfer, discussed risks and benefit, consent of transferring signed, called to [facility] Hyun santos pt, will go by ALS Called to patient's son his name is Kevin, up today his conditions which is guarded Also inquiry about CODE STATUS, that he said brother is power of research attorney, they will call us back Full code - SCDs pending surgery eval Instructions / Follow-Up you have gas forming infectious process, deep extensive necrotizing fasciitis I am transferring you to [facility] you need to follow up with pcp after discharge from [facility] Total Time Spent: Greater than 30 minutes This includes examination of the patient, discharge planning, medication reconciliation, and communication with other providers. Discharge Instructions Please refer to the electronic Patient Visit Report (Discharge Instructions) for additional information. Additional Copies To Samuel Goins M.D.
--- NOTE | 2016-02-26 16:23 | Medical Consult ---
Consultation Date of Consultation: Feb 26, 2016. Attending Physician: Rhett Bell MD, PhD Reason for Consultation: Gas-forming infection process History of Present Illness 85-year-old female with longstanding diabetes mellitus and morbid obesity, was admitted to the hospital with weakness, nausea, and vomiting. She was found to have large stage IV perirectal ulceration with extension to the right thigh with erythema, swelling, and foul odor. Started on broad-spectrum antibiotics vancomycin and Zosyn. Cultures thus far are pending. She underwent CT scan which shows the presence of large amount of soft tissue gas consistent with gas-forming infection as well as possible necrotizing fasciitis. Has been seen by surgery, and the consultation is pending. Patient has been hemodynamically stable, no significant reported fever. Past Medical/Surgical History Medical Problems: (1) Cellulitis Status: Acute (2) Dehydration Status: Acute (3) Sacral ulcer Status: Acute (4) Weakness Status: Acute Medical Problems: (1) Decubitus skin ulcer (2) Esophageal reflux (3) Hypothyroidism, unspecified (4) Unspecified cataract Family History Noncontributory Social History Smoking Status: Never Smoker Marital Status: Housing Status: lives alone Occupation Status: unemployed Allergies Coded Allergies: Sulfa Drugs (Verified Allergy, Mild, RASH, 02/25/16) Current Inpatient Medications Medications Dose Route/Sig Max Daily Dose Days Date Category [Vancomycin Consult Active] 1 EA Misc 1 Ea N/A UD PRN 1 02/26/16 Rx [Piperacill/Tazobac Consult] 1 EA Misc 1 Ea N/A UD PRN 1 02/26/16 Rx [Simvastatin] 1 Tab PO QPM 02/25/16 Reported Aleve (Naproxen) 220 Mg Tab 220 Mg PO DIRECTED 02/25/16 Reported Synthroid Unknown Dose (Levothyroxine Sodium) Tab PO QAM 10/30/07 Reported Ecotrin Or Generic * (Aspirin) 81 Mg Ectab 81 Mg PO DAILY 10/30/07 Reported [Preservision Lutein] 2 Tab PO DAILY 10/30/07 Reported Multivitamin (Multivitamins) Tab 1 Tab PO DAILY 10/30/07 Reported Glucophage * (Metformin HCl) 500 Mg Tab 500 Mg PO QPM 10/30/07 Reported Review of Systems Constitutional: + fatigue, + weakness, No fever Eyes: No problem reported ENT: No problem reported Respiratory: No problem reported Cardiovascular: No problem reported Abdomen: + nausea, + vomiting, No problem reported Musculoskeletal: No problem reported Genitourinary - Female: No problem reported Neurologic: No problem reported Psychiatric: No problem reported Endocrine: No problem reported Integumentary: + new/changing skin lesions Allergic / Immunologic: No problem reported Physical Exam Date Time Temp Pulse Resp B/P Pulse Ox O2 Delivery O2 Flow Rate FiO2 02/26/16 12:27 36.3 84 14 98 02/26/16 11:29 36.3 84 14 129/68 98 Nasal Cannula 02/26/16 10:04 96 Room Air 02/26/16 09:40 36.6 77 16 154/81 96 Room Air 02/26/16 09:04 96 Room Air 02/26/16 08:00 96 Room Air 02/26/16 07:47 36.7 78 16 121/74 96 Room Air 02/26/16 00:28 Room Air 02/26/16 00:00 36.5 81 18 117/65 96 Room Air 02/25/16 21:52 36.7 87 18 152/91 98 Room Air 02/25/16 21:04 85 18 129/85 98 Room Air 02/25/16 19:59 86 18 143/73 96 Room Air 02/25/16 18:46 99 Room Air 02/25/16 18:29 89 02/25/16 18:25 36.6 99 18 134/88 94 Room Air General Appearance: WD/WN, no apparent distress, + obese Head: normocephalic, atraumatic Eyes: normal inspection, EOMI, sclerae normal ENT: normal ENT inspection, pharynx normal Neck: supple, no adenopathy, thyroid normal, trachea midline Respiratory/Chest: chest non-tender, lungs clear, normal breath sounds, no respiratory distress Cardiovascular: regular rate, rhythm, no gallop, no murmur Abdomen/GI: normal bowel sounds, non tender, soft, no organomegaly Genitourinary - Female: + pertinent finding ( Eddy catheter in place) Back: normal inspection, no CVA tenderness Extremities/Musculoskelatal: no calf tenderness, normal capillary refill Neurologic/Psych: alert, oriented x 3 Skin: normal color, no rash, + pertinent finding ( stage IV perirectal decubitus ulcer with erythema spreading to both thighs) Lymphatic: no adenopathy Laboratory Results Date/Time Source Procedure Growth Status 02/25/16 18:28 Blood Blood Culture Pending Received 02/25/16 18:25 Blood Blood Culture Pending Received 02/25/16 19:50 Urine,Catheterized Urine Culture - Preliminary NO GROWTH - LESS THAN 1,000 COLONIES/... Resulted 02/25/16 18:13 Drainage-Deep Sacrum Gram Stain - Final Resulted 02/25/16 18:13 Wound Culture - Preliminary Gram Negative Bacilli Resulted Last 24 Hours Test 02/25/16 18:28 02/25/16 19:50 02/26/16 05:53 02/26/16 07:05 White Blood Count 25.99 K/uL Red Blood Count 4.31 M/uL Hemoglobin 11.9 g/dL Hematocrit 34.2 % Mean Corpuscular Volume 79.4 fL Mean Corpuscular Hemoglobin 27.6 pg Mean Corpuscular Hemoglobin Concent 34.8 g/dl Platelet Count 387 K/uL Mean Platelet Volume 9.4 fL RDW Standard Deviation 42.0 fL RDW Coefficient of Variation 14.6 % Neutrophils % (Manual) 87.8 % Lymphocytes % (Manual) 10.4 % Monocytes % (Manual) 0.9 % Eosinophils % (Manual) 0.9 % Neutrophils # (Manual) 22.82 K/uL Total Absolute Neutrophils 22.82 K/uL Lymphocytes # (Manual) 2.70 K/uL Total Absolute Lymphocytes 2.70 K/uL Monocytes # (Manual) 0.23 K/uL Eosinophils # (Manual) 0.23 K/uL Prothrombin Time 14.7 SECONDS Prothromb Time International Ratio 1.4 Activated Partial Thromboplast Time 26.1 SECONDS Partial Thromboplastin Ratio 1.0 Sodium Level 128 mmol/L Potassium Level 4.1 mmol/L Chloride Level 92 mmol/L Carbon Dioxide Level 22 mmol/L Anion Gap 14.0 mmol/L Blood Urea Nitrogen 50 mg/dl Creatinine 1.60 mg/dl 1.20 mg/dl Est Creatinine Clear Calc Drug Dose 26.5 ml/min 34.4 ml/min Estimated GFR () 33.7 47.7 Estimated GFR (Non- 29.1 41.2 BUN/Creatinine Ratio 31.3 Random Glucose 172 mg/dl Lactic Acid Level 3.2 mmol/L Calcium Level 7.9 mg/dl Total Bilirubin 0.5 mg/dl Aspartate Amino Transf (AST/SGOT) 54 U/L Alanine Aminotransferase (ALT/SGPT) 36 U/L Alkaline Phosphatase 143 U/L Total Creatine Kinase 295 U/L Troponin I < 0.015 ng/ml Total Protein 6.4 gm/dl Albumin 1.7 gm/dl Globulin 4.7 gm/dl Albumin/Globulin Ratio 0.4 Thyroid Stimulating Hormone (TSH) 2.500 uIu/ml Free Thyroxine 1.63 ng/dl Urine Color DK YELLOW Urine Appearance TURBID Urine pH 5.0 Urine Specific [place] 1.016 Urine Protein NEG Urine Glucose (UA) NEG Urine Ketones NEG Urine Occult Blood 2+ Urine Nitrite NEG Urine Bilirubin NEG Urine Urobilinogen NEG Urine Leukocyte Esterase NEG Urine WBC (Auto) 5-10 /hpf Urine RBC (Auto) 5-10 /hpf Urine Hyaline Casts (Auto) 1-5 /lpf Urine Epithelial Cells (Auto) >30 /lpf Urine Bacteria (Auto) NEG Urine Renal Epithelial Cells 0-5 /lpf Urine Crystals AMORPHOUS SEDIMENT Urine Pathogenic Casts /lpf Urine Yeast (Auto) Bedside Glucose 137 mg/dl Test 02/26/16 09:53 02/26/16 10:25 02/26/16 11:46 Lactic Acid Level 2.1 mmol/L Total Creatine Kinase 202 U/L Creatine Kinase MB 1.5 ng/ml Creatine Kinase MB Ratio 0.7 Troponin I < 0.015 ng/ml White Blood Count 21.87 K/uL Red Blood Count 4.18 M/uL Hemoglobin 11.1 g/dL Hematocrit 32.7 % Mean Corpuscular Volume 78.2 fL Mean Corpuscular Hemoglobin 26.6 pg Mean Corpuscular Hemoglobin Concent 33.9 g/dl Platelet Count 344 K/uL Mean Platelet Volume 9.1 fL RDW Standard Deviation 41.7 fL RDW Coefficient of Variation 14.7 % Neutrophils % (Manual) 82.6 % Lymphocytes % (Manual) 16.5 % Monocytes % (Manual) 0.9 % Neutrophils # (Manual) 18.06 K/uL Total Absolute Neutrophils 18.06 K/uL Lymphocytes # (Manual) 3.61 K/uL Total Absolute Lymphocytes 3.61 K/uL Monocytes # (Manual) 0.20 K/uL Toxic Granulation 1+ Echinocytes 1+ Sodium Level 133 mmol/L Potassium Level 4.0 mmol/L Chloride Level 99 mmol/L Carbon Dioxide Level 21 mmol/L Anion Gap 13.0 mmol/L Blood Urea Nitrogen 48 mg/dl Creatinine 1.20 mg/dl Est Creatinine Clear Calc Drug Dose 34.4 ml/min Estimated GFR () 47.7 Estimated GFR (Non- 41.2 BUN/Creatinine Ratio 40.3 Random Glucose 130 mg/dl Calcium Level 7.2 mg/dl Total Bilirubin 0.5 mg/dl Direct Bilirubin 0.3 mg/dl Aspartate Amino Transf (AST/SGOT) 59 U/L Alanine Aminotransferase (ALT/SGPT) 33 U/L Alkaline Phosphatase 115 U/L Total Protein 5.4 gm/dl Albumin 1.3 gm/dl Bedside Glucose 131 mg/dl Patient Name: ALEXANDRA COX Unit Number: [id number] Dictated: 02/26/[id number] Transcribed: 02/26/161239 JA Printed Date/Time: [~ rep prt dt]/[~ rep prt tm] [~ rep ct labl] - [~ rep ct ivnm] [facility] [place] [address] Dictated: 02/26/[id number] Transcribed: 02/26/161239 JA Printed Date/Time: [~ rep prt dt]/[~ rep prt tm] [~ rep ct labl] - [~ rep ct ivnm] CT OF THE ABDOMEN AND PELVIS WITHOUT CONTRAST CLINICAL HISTORY: Cellulitis. Decubitus skin ulcer. Nausea and vomiting. COMPARISON STUDY: PET/CT September 08, 2015. TECHNIQUE: Axial images of the abdomen and pelvis were obtained without IV contrast. Images were reviewed in the axial, sagittal, and coronal planes. FINDINGS: Visualized portions of the lower chest demonstrate a few right middle lobe nodules which are unchanged since prior chest CT of January 26, 2016. These remain indeterminate. Evaluation of the abdomen and pelvis is suboptimal given the lack of IV and oral contrast. There are gallstones within the gallbladder. Unenhanced images of spleen, adrenal glands, kidneys and pancreas are unremarkable. There is no hydronephrosis. There is no biliary or pancreatic ductal dilatation. There is apparent mild nodularity of the liver surface. Sensitivity for detection of hepatic lesions is diminished on this unenhanced exam but none are identified. There are post surgical findings within the right. There is no evidence for a bowel obstruction. Although, there is soft tissue ulceration overlying the sacrum and coccyx. There is extensive associated soft tissue gas that extends into the both ischioanal fossae, the bilateral buttocks, including the gluteal musculature, the left abductor musculature and both upper thighs, left greater than right. There is associated infiltration. There is no drainable fluid collection on this examination. The gas contacts the coccyx. There may be associated osteomyelitis. A Eddy balloon is present within the bladder which is collapsed. IMPRESSION: Sacral decubitus ulcer with extensive associated soft tissue gas that extends into the bilateral ischioanal fossae, the bilateral buttocks, including the gluteal musculature, the bilateral thighs and the left abductor musculature. The findings suggest a severe gas-forming infectious process such as necrotizing fasciitis. Possible associated osteomyelitis of the coccyx. Surgical consultation is recommended. Findings discussed with Dr. Bell at time of dictation. Electronically signed by: Adan Garrett M.D. 02/26/2016 12:55 PM Dictated Date/Time: 02/26/2016 12:40 PM The status of this report is Signed. Draft = Not yet reviewed or approved by Radiologist. Signed = Reviewed and approved by Radiologist. <AttendingPhy>Rhett Bell MD, PhD</AttendingPhy> <FamilyPhy>Samuel Goins M.D. </FamilyPhy> <PrimaryPhy>Samuel Goins M.D.</PrimaryPhy> <UnitNumber>[id number]</ UnitNumber> <VisitNumber>[id number]</VisitNumber> <PatientName>ALEXANDRA COX< /PatientName> <DateOfBirth>1930</DateOfBirth> <Location>[facility]</Location> < ServiceDate>02/25/16</ServiceDate> <MNE>ESINDI</MNE> <OrderingPhy>Rhett Bell MD, PhD</OrderingPhy> <OrderingPhyMNE>f rep ord dr anglin</OrderingPhyMNE> < DictatingPhyMNE>f rep dict dr anglin</DictatingPhyMNE> <CCListMNE>f rep ct kayee</ CCListMNE> <AdmittingPhyMNE>f pt admit dr anglin</AdmittingPhyMNE> <AttendingPhyMNE >f pt attend dr anglin</AttendingPhyMNE> <ConsultingPhyMNE>f pt consult dr anglin</ConsultingPhyMNE> <FamilyPhyMNE>f pt fam dr anglin</FamilyPhyMNE> <OtherPhyMNE>f pt other dr anglin</OtherPhyMNE> < PrimaryPhyMNE>f pt prim care dr anglin</PrimaryPhyMNE> <ReferringPhyMNE>f pt referring dr anglin</ReferringPhyMNE> Assessment & Plan stage IV decubitus ulcer with significant progressive infection with evidence necrotizing fasciitis/ gas-forming infection. Patient will require extensive urgent surgical intervention, and now being transferred to tertiary care center for further management. Case discussed extensively with hospitalist service.
[2016-02-26] MEDS ORDERED: FAMOTIDINE 20 MG TAB PO SCH (21:00)
[2016-02-26] MEDS ORDERED: SIMVASTATIN 20 MG TAB PO SCH (21:00)
[2016-02-26] MEDS ORDERED: FAMOTIDINE IV INJ 20 MG in DEXTROSE 5% 100ML 100 ML IV SCH (21:00)
[2016-02-27] MEDS ORDERED: VANCOMYCIN INJ 1,100 MG in SODIUM CHLORIDE 0.9% 250ML 250 ML IV SCH (04:00)
[2016-02-29] MEDS ORDERED: VANCOMYCIN TROUGH ONE (03:30)
== END 2016-02-26 15:15 | disposition short-term general hospital (02) | DRG 871 ==
LOC: ENRESERVTM → ENRESERVDT → EDBD 17:46 → C.EDC 17:47 → C.MSW 22:01 → C.2T 02-26 13:19
PROVIDERS: ADMIT Internal Medicine; ATTEND Hospitalist
DX: A41.9 Sepsis, unspecified organism (principal); M72.6 Necrotizing fasciitis; A48.0 Gas gangrene; L89.154 Pressure ulcer of sacral region, stage 4; E87.1 Hypo-osmolality and hyponatremia; N17.9 Acute kidney failure, unspecified; E11.622 Type 2 diabetes mellitus with other skin ulcer; E66.01 Morbid (severe) obesity due to excess calories; R11.2 Nausea with vomiting, unspecified; R19.7 Diarrhea, unspecified; E03.9 Hypothyroidism, unspecified; Z68.39 Body mass index [BMI] 39.0-39.9, adult; Z79.899 Other long term (current) drug therapy; Z79.82 Long term (current) use of aspirin; Z79.84 Long term (current) use of oral hypoglycemic drugs